=== PATIENT | male | born 1940 | race Caucasian/White ===

== ENCOUNTER 2016-06-05 06:39 | Day surgery (SDC) | payer OTHER ==
--- NOTE | 2016-05-25 11:29 | GHP ---
[f rep st] HISTORY AND PHYSICAL Amended report This is for upcoming surgery, date of admission of June 05, 2016. HISTORY OF PRESENT ILLNESS: The patient comes to our office for the first time , referred by Dr. Valdivia for evaluation of a tender left breast swelling for a few months. He has never had a problem with his chest or breast region. He has had no radiography. He has had no nipple changes. He has not noticed any other masses. He is on terazosin. MEDICATIONS: Terazosin, warfarin, lisinopril, furosemide, carvedilol. PAST MEDICAL HISTORY: Atrial fibrillation, automatic implantable cardioverter defibrillator, BPH, congestive heart failure, hypertension. PAST SURGICAL HISTORY: Ankle reconstruction. Hernia repair. Tonsillectomy/ adenoidectomy. ALLERGIES: No known drug allergies. SOCIAL HISTORY: Two children, , never tobacco use. REVIEW OF SYSTEMS: He had a negative 10-point review of systems. PHYSICAL EXAM: GENERAL: Patient is a pleasant male, in no apparent distress. HEAD AND NECK: Normocephalic, atraumatic. No masses. HEART: Regular rhythm and rate. CHEST: CTA bilaterally. A 2.5 x 3.5 cm, soft, moveable, nontender mass, just superior and slightly left lateral to the nipple region. No axillary masses. ABDOMEN: Soft, nontender. EXTREMITIES: No lower extremity edema. Normal dorsalis pedis pulse to palpation. IMPRESSION: Left breast mass, likely gynecomastia, possibly secondary to terazosin. RECOMMENDATION: Left chest wall mass excision was reviewed with the patient in detail, including the risks of bleeding, recurrence, nerve injury, nipple deformity. The patient elects to proceed with scheduling surgery for May. Please note he does have a Medtronic pacemaker as well as the fact he will need to receive Coumadin instructions from his primary care provider. This is explained to our patient by our scheduling person in our office. /[id number]/MODL Add acc#, 05/30/16, rajesh MIGUEL
[~2016-06-05 06:39] MED LIST: ceFAZolin 2 GM/DEXTROSE 100 ML IV ONE
[2016-06-05] MEDS ORDERED: THROMBIN (RECOMBINANT) 5,000 UNIT VIAL TP ONE (07:31)
[2016-06-05] MEDS ORDERED: SODIUM BICARBONATE 10 MEQ/10 ML SYR IVP ONE (07:31)
[2016-06-05] MEDS ORDERED: LIDOCAINE 1% 30 ML SDV ONE (07:31)
[2016-06-05] MEDS ORDERED: BUPIVACAINE 0.5% 30 ML SDV ONE (07:31)
[2016-06-05] MEDS ORDERED: METHYLENE BLUE 1% 100 MG/10 ML VIAL ONE (07:32)
[2016-06-05 07:45] LABS: ANION GAP 12 mEq/L (8-16); CALCIUM 9.5 mg/dL (8.5-10.4); CARBON DIOXIDE 24 mEq/l (22-31); CHLORIDE 107 mEq/L (97-110); CREATININE 1.5 mg/dL (0.7-1.3); GLOMERULAR FILTRATION RATE 46; GLUCOSE 97 mg/dL (70-100); POTASSIUM 4.6 mEq/L (3.5-5.2); SODIUM 143 mEq/L (134-144)
[2016-06-05 07:48] LABS: INR 1.81 (0.83-1.16); PROTIME(PATIENT) 21.1 SEC (12.0-15.0)
[2016-06-05] MEDS ORDERED: LR 1,000 ML IV ONE (07:52)
[2016-06-05] MEDS ORDERED: LIDOCAINE 1% 5 ML SDV ID PRN (07:52)
[2016-06-05] MEDS ORDERED: fentaNYL 100 MCG/2 ML INJ ONE ×2 (09:04→09:33)
[2016-06-05] MEDS ORDERED: PROPOFOL/EMULSION 500 MG/50 ML BOTTLE IV ONE (09:04)
[2016-06-05] MEDS ORDERED: MIDAZOLAM 2 MG/2 ML VIAL ONE (09:05)
[2016-06-05] MEDS ORDERED: LIDOCAINE 2% 5 ML SDV ONE (09:05)
[2016-06-05] MEDS ORDERED: DEXAMETHASONE 4 MG/ML VIAL ONE (09:36)
[2016-06-05] MEDS ORDERED: SKIN ADHESIVE (DERMABOND) 1 EACH TP ONE (09:41)
--- NOTE | 2016-06-24 20:20 | GOP ---
[f rep st] OPERATIVE REPORT DATE OF OPERATION: 06/05/2016 SURGEON: Clayton Diez MD DOUGHNUT ICER: ESTEBAN Draper ANESTHESIOLOGIST: Dr. Cox PREOPERATIVE DIAGNOSIS: Left breast mass. POSTOPERATIVE DIAGNOSIS: Probable gynecomastia. PROCEDURE PERFORMED: A left subcutaneous mastectomy. FINDINGS: The patient was found to have a 3 cm mass in the subareolar area of the left breast consi stent with gynecomastia on initial evaluation, final path is pending. DESCRIPTION OF PROCEDURE: Patient taken to the operating room, where he received satisfactory gener al endotracheal anesthesia by Dr. Cox. He was placed in the supine position, and prepped an d draped in the usual sterile fashion with his left arm outstretched on an arm board. A curvilinear incision was made around the areola. Dissection was carried down to the palpable mass . This was grasped with a towel clip. It was then sharply excised from surrounding skin of the are desi, as well as the subcu and pectoral fascia, excising the entire mass intact. Hemostasis was obta ined with electrocautery. The wound was infiltrated with 0.5% Marcaine. Some topical thrombin was placed in the cavity. Subc u was closed with interrupted 3-0 Vicryl sutures, the skin with a 4-0 Monocryl subcuticular stitch. The specimen was sent to Pathology and thought to be benign. He tolerated the procedure well. The re were no complications. /[id number]/MODL
== END 2016-06-05 12:55 | disposition home or self-care (01) ==
LOC: FSGY 06:39
PROVIDERS: ATTEND Surgery
PROC: 0HBU0ZX Excision of Left Breast, Open Approach, Diagnostic (ICD-10-PCS; principal; 2016-06-05 08:30)
DX: N62 Hypertrophy of breast (principal); I10 Essential (primary) hypertension; I48.91 Unspecified atrial fibrillation; N28.9 Disorder of kidney and ureter, unspecified
CPT/HCPCS: J0690; J1100; J2250; J2704; J3010; Q9968

== ENCOUNTER 2017-04-05 09:38 | Emergency (ER) | payer OTHER ==
[2017-04-05 09:48] VITALS: RESP 16; TEMP 97.9; O2SAT 97
--- NOTE | 2017-04-05 10:44 | EDPHY ---
H & P Time Seen by Provider: 04/05/17 10:09 HPI/ROS: HPI Right shoulder injury. 76-year-old male by private vehicle. This patient lives up left [facility]. He reports that 1 week ago he slipped on some ice landing on his right side and shoulder. He complains of continued pain to the medial aspect of the right clavicle. He denies any other complaint. He is on Coumadin. He did not hit his head. There was no loss of consciousness. He denies any headache, confusion, nausea or vomiting. No other complaints. ROS: Constitutional: No fever, no chills. No weakness. Eyes: No discharge. No changes in vision. ENT: No sore throat. No nasal congestion or rhinorrhea. Respiratory: No cough. No shortness of breath. Cardiac: No chest pain, no palpitations. Gastrointestinal: No abdominal pain, no vomiting, no diarrhea. Genitourinary: No hematuria. No dysuria or increased frequency with urination. Musculoskeletal: No back pain. No neck pain. As above. Skin: No rashes. Neurological: No headache. No focal weakness or altered sensation. Past medical history: Pacemaker, hypertension, arrhythmia. He is on Coumadin. Cnc Mill Operator is Dr. Rodriguez. Social history: Lives with his . Very active. Nonsmoker. Denies alcohol. Physical Exam: General Appearance: Alert, no distress. This patient is responding to questions appropriately and in full sentences. This patient appears well- hydrated and well-nourished. Head: Normocephalic atraumatic. Face: Facial bones are stable on palpation. Eyes: Pupils equal and round and reactive to light, no pallor or injection. No lid erythema or edema. ENT, Mouth: Mucous membranes moist. Dentition is intact. No malocclusion of the jaw. No tongue lacerations or abrasions. Pharynx is clear. The bilateral nasal canals are clear. No septal hematoma. Respiratory: There are no retractions, lungs are clear to auscultation with good air movement bilaterally. Chest wall is stable to AP and lateral palpation. Cardiovascular: Regular rate and rhythm. No murmur. Gastrointestinal: Abdomen is soft and nontender, no masses, bowel sounds normal. Neurological: Motor sensory function is intact. Cranial nerves are normal. Cerebellar function intact. Skin: Warm and dry, no rashes. No lacerations, abrasions. He does have ecchymosis involving his right mid forearm as well as ecchymosis and a swelling over the medial aspect of the right clavicle. The skin is intact in this area. The ecchymosis then spreads down into his right chest wall. He is nontender over the chest wall on palpation. Musculoskeletal: Neck is supple and nontender. The trachea is midline. No midline cervical, thoracic, lumbar or sacral tenderness on palpation. No flank tenderness on palpation. Extremities are symmetrical, full range of motion. All joints in the bilateral upper and bilateral lower extremities range without pain or impingement. No tenderness on palpation of the long bones in the bilateral upper and bilateral lower extremities. Psychiatric: No agitation. No depression. Database: EKG: Imaging: Right shoulder x-ray series: Significant for a medial clavicle fracture with minimal displacement. Interpreted by me. Procedures: Emergency department course: Vital signs reviewed. From triage, the patient was sent for x-rays as above. 10:40 a.m., discussed results of x-rays and diagnosis with the patient. At this time he does not want to follow up with a lactation specialist. He wants to let the clavicle heal on its own for the time being. I told him I would give him a referral to an lactation specialist should he change his mind. He has not been using a sling. He does have a sling at home. He states that he is comfortable for most of the day. He reports certain movements aggravates his pain such as putting the keys to his car in the admission. He has been taking some Percocet conservatively for pain. I will give him another prescription for Percocet. He does not have issues with constipation with this medication. I discussed follow-up with him. Return to emergency department precautions thoroughly reviewed. All of his questions were answered. He was discharged in good condition. Differential Diagnosis: The differential diagnosis on this patient includes but is not limited to right clavicle fracture. Right humerus fracture, glenohumeral dislocation, subluxation, AC joint dislocation, traumatic brain injury unlikely. This represents a partial list of diagnoses considered. These considerations are based on history, physical exam, past history, reassessment and diagnostic testing. Smoking Status: Never smoked Constitutional: Initial Vital Signs Temperature (C) 36.6 C 04/05/17 09:43 Heart Rate 75 04/05/17 09:43 Respiratory Rate 16 04/05/17 09:43 Blood Pressure 125/81 H 04/05/17 09:43 O2 Sat (%) 97 04/05/17 09:43 O2 Delivery Mode Room Air Allergies/Adverse Reactions: No Known Allergies Allergy (Unverified 07/28/12 13:30) Home Medications: Medication Instructions Recorded Carvedilol [Coreg (RX)] 12.5 mg PO BIDMEAL 11/19/12 Lisinopril [Zestril 20 mg (RX)] 20 mg PO DAILY 11/19/12 Multivitamins [Tab-A-German] 1 each PO DAILY 11/19/12 [place]-3 Fatty Acids [Fish Oil 1000 1,000 mg PO DAILY 11/19/12 mg (OTC)] Terazosin HCl [Hytrin] 5 mg PO HS 11/19/12 Furosemide [Lasix 20 MG (RX)] 10 mg PO DAILY 04/25/13 Warfarin Sodium 06/02/16 oxyCODONE/APAP 5/325 [Percocet 1 - 2 tab PO Q4-6PRN PRN #14 tab 04/05/17 5/325 (*)] Medical Decision Making - Diagnostics Imaging Results: Imaging Impressions Shoulder X-Ray 04/05/17 09:54 Impression: Acute minimally displaced medial right clavicle fracture. Departure - Departure Disposition: Home, Routine, Self-Care Clinical Impression: Right clavicle fracture Condition: Good Instructions: Clavicle Fracture (ED) Additional Instructions: Read and follow provided instructions. Follow-up with your primary care physician or orthopedics as discussed in 2-3 days for re-evaluation as needed. Take medication as prescribed. Export/Percocet dosin-2 every 4-6 [address] for [address] Do not drive on this medication. Return to the emergency department for worsening pain, swelling, loss of sensation or weakness in your arm or other serious concerns. Referrals: Doyle Valdivia MD [Primary Care Provider] - As per Instructions Michael Patel MD [Medical Doctor] - As per Instructions Prescriptions: oxyCODONE/APAP 5/325 [Percocet 5/325 (*)] 1 - 2 tab PO Q4-6PRN PRN #14 tab PRN Reason: For Moderate To Severe Pain
[2017-04-05 11:09] VITALS: BP 126/65; PULSE 68
== END 2017-04-05 11:10 | disposition home or self-care (01) ==
DX: S42.001A Fracture of unspecified part of right clavicle, initial encounter for closed fracture (principal); I10 Essential (primary) hypertension; Z95.0 Presence of cardiac pacemaker; Z79.01 Long term (current) use of anticoagulants; W00.2XXA Other fall from one level to another due to ice and snow, initial encounter

== ENCOUNTER 2017-04-25 17:36 | Inpatient (IN) | payer OTHER ==
--- NOTE | 2017-04-25 17:55 | CPEKG ---
Heart Rate: 111 RR Interval: 541 QRSD Interval: 186 QT Interval: 440 QTC Interval: 598 QRS [place]: 109 T Wave [place]: -78 EKG Severity - ABNORMAL ECG - EKG Impression: AFIB/FLUT AND V-PACED COMPLEXES EKG Impression: RIGHT BUNDLE BRANCH BLOCK EKG Impression: NONSPECIFIC ST DEPRESSION, ANT-LAT LEADS Electronically Signed By: Rajinder Huffman 25-Apr-2017 21:44:06
[2017-04-25] MEDS ORDERED: NS 1,000 ML IV ONE (17:58)
--- NOTE | 2017-04-25 17:58 | EDPHY ---
H & P Stated Complaint: Heart beating differently at times x 2 days;has pacer/defib HPI/ROS: HPI CHIEF COMPLAINT: Tachycardia, palpitations HISTORY OF PRESENT ILLNESS: This patient is a very pleasant 76-year-old male, significant past medical history atrial fibrillation on Coumadin, left chest pacemaker/defibrillator, presents to the emergency room with palpitations, and brief episodes of syncope. Patient reports over the past 48 hr he has had intermittent fast palpitations that at times makes heels flushed, and then also endorses 30 sec to a minute of syncope. This happened 4 times. Twice today. He denies any chest pain or shortness of breath. Denies nausea vomiting. Denies sweating. But does endorse flushed feeling. He states that his heart rate is always usually in AFib but recently it is felt very fast and very irregular causing him to be feeling flushed and at times states that he thinks he has a syncopal episode. Dr. 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 Past Medical History: Hypertension, atrial fibrillation, BPH, CHF, defibrillator/pacemaker Past Surgical History: Left breast mass excision Social History: Denies daily use of drugs alcohol tobacco products. Family History: Noncontributory ROS REVIEW OF SYSTEMS: A comprehensive 10 point review of systems is otherwise negative aside from elements mentioned in the history of present illness. Exam Constitutional appears well nontoxic triage nursing summary reviewed, vital signs reviewed, awake/alert. Eyes normal conjunctivae and sclera, EOMI, PERRLA. HENT normal inspection, atraumatic, moist mucus membranes, no epistaxis, neck supple/ no meningismus, no raccoon eyes. Respiratory clear to auscultation bilaterally, normal breath sounds, no respiratory distress, no wheezing. Cardiovascular tachycardic, irregular, irregular rhythm, no murmur, no edema, distal pulses normal. Gastrointestinal soft, non-tender, no rebound, no guarding, normal bowel sounds, no distension, no pulsatile mass. Genitourinary no CVA tenderness. Musculoskeletal no midline vertebral tenderness, full range of motion, no calf swelling, no tenderness of extremities, no meningismus, good pulses, neurovascularly intact. Skin pink, warm, & dry, no rash, skin atraumatic. Neurologic awake, alert and oriented x 3, AAOx3, moves all 4 extremities equally, motor intact, sensory intact, CN II-XII intact, normal cerebellar, normal vision, normal speech. Psychiatric normal mood/affect. Heme/Lymph/Immune no lymphadenopathy. Differential Diagnosis: Includes but is not limited to in a particular order AFib with RVR, other cardiac arrhythmia, doubt V-tach or VFib given that this is diffuse later has not went off, bradycardia, electrolyte disturbance, dehydration, acute coronary syndrome Medical Decision Making: Plan for this patient IV establishment blood draw, full quality assurance monitor body, obtain EKG, chest x-ray. Will have his Medtronic pacemaker interrogated. Re-evaluation: EKG interpretation by me on record in [employer] system. Impression time of EKG 1753, this is atrial fibrillation rate of 111 PVC present. Very irregular and fast. There does appear to be slight ST depression in V1 V2 V3 with T-wave abnormality. Also ST depression V4 V5 V6. This EKG is performed no chest pain or pressure. 1820: Spoke with Dr. MÁRQUEZ about this patient's clinical scenario food as well as EKG. I will test him the EKG for him to review. He does recommend [employer] interrogation of his pacemaker. Additionally will review the EKG. 182: This patient just now had a run of V-tach for approximately 5 sec. This was witnessed on the monitor by myself. The patient did not have a shock of his defibrillator. Will consult Cardiology for further recommendation up this. The patient is being moved ER room 9 to ER room 2. 182: Patient just had a run of ventricular tachycardia he became symptomatic and almost had a syncopal episode lying down in bed. He denies chest pain. It ran for about 5 sec. He has been moved to ER room 2. External defibrillator pads will be placed. He is internal defibrillator is not shocking him. I will notify Cardiology. 1830: Spoke with Dr. MÁRQUEZ: Recommend amiodarone bolus amiodarone drip admission to the ICU. Recommends interrogation of the defibrillator by [employer]. He would like to specifically speak with [employer] 183: At this time patient resting comfortably he has no chest pain. He is in ER room tube full quality assurance monitor body. External defibrillator pads. EKG interpretation by me on record in [employer] system. Impression this is a repeat EKG 18 30, atrial fibrillation with PVCs present. Abnormal ST depression T-wave abnormalities again seen. Rhythm strip reviewed. Time of rhythm strip 1821. Shows a run of V-tach proximally 5 sec. Rate around 200. 1911: Spoke with Dr. Márquez, again Recommends giving the amiodarone more time. Hold for lidocaine. He does recommend giving IV Lasix. ED x-ray chest one view: This shows cardiomegaly without pulmonary edema. 1920: Patient receiving ER room bolus at this time. The ventricular tachycardia has not been as frequent. I have ordered this patient IV Lasix due to significant cardiomegaly on x-ray. I do not appreciate significant pulmonary edema however the patient's BNP is elevated. Dr. MÁRQUEZ recommends 40 mg IV Lasix. 1955: This patient be admitted to the ICU for V-tach. [employer] is seen and evaluated the patient. Dr. Taylor was consult and talk to [employer] they did make some defibrillator adjustments. Dr. Taylor will see the patient. The patient did get amiodarone and he is doing well. Has not had any further V-tach about 20-30 minutes. Plan for a finley to the ICU for ventricular tachycardia. Additionally cardiomegaly noted on chest x-ray of ordered him IV Lasix he will need an echocardiogram. Dr. Sal will see will see and evaluate the patient admit the patient to the hospital. Critical Care: Total Critical Care Time Spent Managing this Patient: 65Minutes. This time was spent Exclusively with this patient. This Care was exclusive of procedures. The Organ System/life at risk was cardiac This Patient was in Critical Condition because intermittent V-tach Source: Patient - Personal History Current Tetanus Diphtheria and Acellular Pertussis (TDAP): Yes Tetanus Vaccine Date: UNKNOWN - Medical/Surgical History Hx Asthma: No Hx Chronic Respiratory Disease: No Hx Diabetes: No Hx Cardiac Disease: Yes Hx Renal Disease: No Hx Cirrhosis: No Hx Alcoholism: No Hx HIV/AIDS: No Hx Splenectomy or Spleen Trauma: No Other PMH: Pacer. Afib - Social History Smoking Status: Never smoked Constitutional: Initial Vital Signs Temperature (C) 36.4 C 04/25/17 17:40 Heart Rate 55 L 04/25/17 17:40 Respiratory Rate 16 04/25/17 17:40 Blood Pressure 122/86 H 04/25/17 17:40 O2 Sat (%) 95 04/25/17 17:40 O2 Delivery Mode Nasal Cannula O2 (L/minute) 2 Allergies/Adverse Reactions: No Known Allergies Allergy (Verified 04/25/17 17:43) Home Medications: Medication Instructions Recorded Carvedilol [Coreg (RX)] 12.5 mg PO BIDMEAL 11/19/12 Lisinopril [Zestril 20 mg (RX)] 20 mg PO DAILY 11/19/12 Terazosin HCl [Hytrin] 5 mg PO HS 11/19/12 Warfarin Sodium [Coumadin 5MG (*)] 5 mg PO [id number] 06/02/16 Furosemide [Lasix 40 MG (*)] 40 mg PO DAILY 04/25/17 Multivitamins [Multivitamin (*)] 1 each PO DAILY 04/25/17 Warfarin Sodium [Coumadin 5MG (*)] 2.5 mg PO GASPAR 04/25/17 Medical Decision Making - Data Points Laboratory Results: Laboratory Results 04/25/17 17:55 04/25/17 17:55 Medications Given: Amiodarone HCl (Amiodarone Hcl) 400 mg PO BID [facility] Stop: 10/23/17 20:59 Last Admin: 04/26/17 20:30 Dose: 400 mg Carvedilol (Coreg) 12.5 mg PO BIDMEAL [facility] Stop: 10/23/17 07:59 Last Admin: 04/26/17 18:14 Dose: 12.5 mg Diphenhydramine HCl (Benadryl) 25 mg PO HS [facility] Stop: 10/22/17 21:29 Last Admin: 04/26/17 20:30 Dose: 25 mg Furosemide (Lasix Injection) 40 mg IVP DAILY [facility] Stop: 10/23/17 08:59 Last Admin: 04/26/17 11:12 Dose: 40 mg Lisinopril (Zestril) 20 mg PO DAILY [facility] Stop: 10/23/17 08:59 Last Admin: 04/26/17 11:11 Dose: 20 mg Melatonin (Melatonin) 3 mg PO [facility] Stop: 10/22/17 21:29 Last Admin: 04/26/17 20:30 Dose: 3 mg Multivitamins (Tab-A-German) 1 each PO DAILY [facility] Stop: 10/23/17 08:59 Last Admin: 04/26/17 11:11 Dose: 1 each Oxycodone/Acetaminophen (Percocet 5/325) 1 - 2 tab PO Q4 PRN PRN Reason: Pain, Severe Able to Take PO Stop: 05/06/17 11:02 Last Admin: 04/26/17 20:30 Dose: 1 tab Terazosin HCl (Hytrin) 5 mg PO HS [facility] Stop: 10/22/17 20:59 Last Admin: 04/26/17 18:09 Dose: 5 mg Warfarin Sodium (Coumadin) 2.5 mg PO Gaspar@1600 [facility] Stop: 10/22/17 19:59 Last Admin: 04/25/17 21:01 Dose: Not Given Warfarin Sodium (Coumadin) 5 mg PO MoTuWeThFrSa@1600 [facility] Stop: 10/23/17 15:59 Last Admin: 04/26/17 16:50 Dose: 5 mg Discontinued Medications Furosemide (Lasix Injection) 40 mg IVP EDNOW ONE Stop: 04/25/17 19:15 Last Admin: 04/25/17 19:29 Dose: 40 mg Sodium Chloride (Ns) 1,000 mls @ 0 mls/hr IV EDNOW ONE; Wide Open PRN Reason: Protocol Stop: 04/25/17 17:59 Last Admin: 04/25/17 18:08 Dose: 1,000 mls Amiodarone HCl (Amiodarone Hcl) 100 mls @ 600 mls/hr IV ONCE ONE Stop: 04/25/17 18:36 Last Admin: 04/25/17 18:39 Dose: 100 mls Amiodarone HCl (Amiodarone Hcl) 200 mls @ 0 mls/hr IV EDNOW ONE PRN Reason: As Directed Stop: 04/25/17 18:29 Last Admin: 04/25/17 18:46 Dose: 200 mls Amiodarone HCl 540 mg/ (Dextrose) 300 mls @ 16.667 mls/hr IV ONCE ONE PRN Reason: Protocol Stop: 04/26/17 18:29 Last Admin: 04/26/17 00:25 Dose: 300 mls Departure - Departure Disposition: [facility] Clinical Impression: Ventricular tachycardia CHF (congestive heart failure) Qualifiers: Congestive heart failure type: unspecified congestive heart failure type Congestive heart failure chronicity: acute Qualified Code(s): I50.9 - Heart failure, unspecified Atrial fibrillation Qualifiers: Atrial fibrillation type: unspecified Qualified Code(s): I48.91 - Unspecified atrial fibrillation Condition: Fair
[2017-04-25 18:20] LABS: % IMMATURE GRANULYOCYTES 0.2 % (0.0-1.1); ABSOLUTE IMMATURE GRANULOCYTES 0.01 10^3/uL (0.00-0.10); ADD DIFF? NO; ADD MORPH? NO; ADD SCAN? NO; ATYPICAL LYMPHOCYTE FLAG 0 (0-99); FRAGMENT RBC FLAG 0 (0-99); HEMATOCRIT 33.7 % (40.0-51.0); HEMOGLOBIN 11.8 g/dL (13.7-17.5); LEFT SHIFT FLG 0 (0-99); LIPEMIA HEMOLYSIS FLAG 90 (0-99); MEAN CELL HEMOGLOBIN 35.3 pg (27.9-34.1); MEAN CELL VOLUME 100.9 fL (81.5-99.8); MEAN PLATELET VOLUME 10.3 fL (8.7-11.7); PLATELET CLUMPS FLAG 10 (0-99); PLATELET COUNT 129 10^3/uL (150-400); RED BLOOD CELL COUNT 3.34 10^6/uL (4.40-6.38); RED CELL DISTRIBUTION WIDTH 13.2 % (11.5-15.2)
[2017-04-25] MEDS ORDERED: AMIODARONE HCL 100 ML IV ONE (18:27)
[2017-04-25 18:28] LABS: INR 2.54 (0.83-1.16); PROTIME(PATIENT) 27.3 SEC (12.0-15.0)
[2017-04-25] MEDS ORDERED: AMIODARONE HCL 200 ML IV ONE (18:28)
[2017-04-25 18:29] LABS: APTT 36.3 SEC (23.0-38.0)
--- NOTE | 2017-04-25 18:31 | CPEKG ---
Heart Rate: 99 RR Interval: 606 QRSD Interval: 164 QT Interval: 440 QTC Interval: 565 QRS [place]: -85 T Wave [place]: 92 EKG Severity - ABNORMAL ECG - EKG Impression: AFIB/FLUT AND V-PACED COMPLEXES Electronically Signed By: Rajinder Huffman 25-Apr-2017 21:44:06
[2017-04-25 18:36] LABS: ALANINE AMINOTRANSFERASE 61 IU/L (21-72); ALBUMIN 4.3 g/dL (3.5-5.0); ALKALINE PHOSPHATASE 38 IU/L (38-126); ANION GAP 15 mEq/L (8-16); ASPARTATE AMINOTRANSFERASE 48 IU/L (17-59); BILIRUBIN,TOTAL 0.9 mg/dL (0.1-1.4); BILIRUBIN-CONJUGATED 0.4 mg/dL (0.0-0.5); BILIRUBIN-UNCONJUGATED 0.5 mg/dL (0.0-1.1); CALCIUM 9.7 mg/dL (8.5-10.4); CARBON DIOXIDE 20 mEq/l (22-31); CHLORIDE 109 mEq/L (97-110); CREATININE 1.5 mg/dL (0.7-1.3); GLOMERULAR FILTRATION RATE 46; GLUCOSE 100 mg/dL (70-100); POTASSIUM 4.6 mEq/L (3.5-5.2); SODIUM 144 mEq/L (134-144); TOTAL PROTEIN 7.2 g/dL (6.3-8.2)
[2017-04-25 18:48] LABS: CREATINE KINASE-MB FRACTION 2.13 ng/mL (0.00-3.19); TROPONIN I 0.025 ng/mL (0.000-0.034)
[2017-04-25] MEDS ORDERED: FUROSEMIDE 40 MG/4 ML VIAL IVP ONE (19:14)
[2017-04-25] MEDS ORDERED: ONDANSETRON DISINTEGRATING 4 MG TAB PO PRN (19:50)
[2017-04-25] MEDS ORDERED: ONDANSETRON 4 MG/2 ML VIAL IVP PRN (19:50)
[2017-04-25] MEDS ORDERED: ACETAMINOPHEN 325 MG TAB PO PRN (19:50)
[2017-04-25] MEDS ORDERED: WARFARIN SODIUM 5 MG TAB PO SCH (20:00)
[2017-04-25] MEDS: TERAZOSIN HCL 5 MG CAP PO SCH (21:01)
[2017-04-25] MEDS ORDERED: diphenhydrAMINE 25 MG CAP PO PRN (21:03)
--- NOTE | 2017-04-25 21:31 | GHP ---
[f rep st] HISTORY AND PHYSICAL DATE OF ADMISSION: 04/25/2017 CHIEF COMPLAINT: Syncope. HISTORY OF PRESENT ILLNESS: This is a 76-year-old male with a history of atrial fibrillation and sys tolic heart failure, on chronic anticoagulation, who presents with 4 episodes of loss of consciousnes s/loss of attention over the course of the past 48-72 hours. Patient reports a sensation of flutteri ng of his heart and palpitations, and then 3 separate episodes where he believes he either lost consc iousness or simply lost alertness for 30 seconds or a minute. Patient never had a fall associated wi th these episodes. No loss of bowel or bladder control. Came to, was aware of where he was, but radha ble to recall what had happened just previous to the episodes. He denies any chest pain associated w ith them, denies any new shortness of breath. Denies any abdominal discomfort, nausea, vomiting. De nies any increasing lower extremity edema, myalgias or arthralgias. PAST MEDICAL HISTORY: 1. Atrial fibrillation, on chronic anticoagulation, with implantable defibrillator. 2. Systolic heart failure with an ejection fraction at 25% when last checked. 3. Hypertension. 4. Recent fall with clavicular fracture. 5. BPH. 6. Chronic kidney disease. SOCIAL HISTORY: Negative for tobacco. Patient drinks a beer in the evenings. Denies any illicit dr ugs or marijuana. FAMILY HISTORY: Significant for heart disease. REVIEW OF SYSTEMS: A 10-point review of systems is negative with the exception of that reported in t he HPI. ADVANCED DIRECTIVES: Patient is full cor, full tube. His would be his medical decision maker. PHYSICAL EXAMINATION: VITAL SIGNS: Blood pressure 116/62, heart rate 84, respiratory rate 16, 97% o n 2 L. GENERAL: This is a thin-appearing elderly male in no acute distress. HEENT: Notable for dr y mucous membranes. Eye exam is negative for any icterus. CARDIAC: Patient is regular with a systo lic murmur. GASTROINTESTINAL: Positive bowel sounds. ABDOMEN: Soft and nontender. PULMONARY: Tigre alexandre has bibasilar crackles. MUSCULOSKELETAL: Trace bilateral symmetric lower extremity edema. SK IN: Notable for venous stasis changes in the lower extremities. NEUROLOGIC: He is alert and orient ed x3. PSYCHIATRIC: He is pleasant and cooperative on interview and examination. DATA: Chest x-ray, which I personally reviewed and interpreted, shows pronounced cardiomegaly withou t clear heart failure. There is a mildly displaced right-sided clavicular fracture and an implantabl e cardiac device. EKG at presentation shows ventricular tachycardia with interspersed paced beats. LABORATORY: White count 5.05, hematocrit 33.7, down from previous baselines. MCV is greater than 10 0, platelet count 129. Sodium 144, creatinine 1.5, which appears to be a recent baseline. BNP 12,10 0. ASSESSMENT AND PLAN: This is a 76-year-old male, presenting with ventricular tachycardia and syncope . 1. Acute ventricular tachycardia. Patient had multiple episodes of ventricular tachycardia in the e mergency department while on monitor without syncope, as the episodes were not sustained. The patien t's defibrillator did not appear to be functioning properly. [employer] did come evaluate the device. It was functioning properly, but the settings were such that the device was not intervening on the episodes seen. Patient has been initiated on IV amiodarone, and the pacemaker/defibrillator has been adjusted. Patient will be admitted to the ICU for close cardiac monitoring and ongoing IV amiodaron e drip overnight. Cardiology has been consulted and will evaluate the patient for recommendations re lated to his ventricular dysrhythmia. 2. Chronic systolic heart failure. Last echo in our system shows an ejection fraction of 25%. Patt ent's BNP is markedly elevated. I have ordered a transthoracic echocardiogram for the morning. Will continue his outpatient home medications, which include oral diuretics. Does not appear to be in ac lumbee decompensated heart failure, based on my examination. 3. Atrial fibrillation. Will continue his home anticoagulation. EP will consult and make ongoing r ecommendations related to the new ventricular dysrhythmia. 4. Benign prostatic hyperplasia. Will continue patient's terazosin in the evenings. 5. Prophylaxis. The patient is on full-dose anticoagulation. 6. Diet: Cardiac, n.p.o. after midnight in case the cardiologists want to intervene. DISPOSITION: I expect greater than 2 midnights, as the patient presented with life-threatening ventr icular dysrhythmia, requiring medication titration and close monitoring. I have discussed the case w ith the emergency room physician. Patient will be triaged to the ICU for care. /[id number]/MODL
[2017-04-25] MEDS: diphenhydrAMINE 25 MG CAP PO SCH (21:48)
[2017-04-25] MEDS: MELATONIN 3 MG TAB PO SCH (21:48)
--- NOTE | 2017-04-25 22:57 | GCON ---
[f rep st] CONSULTATION REASON FOR CONSULTATION: Syncope. HISTORY OF PRESENT ILLNESS: This is a 76-year-old patient with past medical history of permanent atrial fibrillation, nonischemic cardiomyopathy, EF of 25- 30%, on chronic anticoagulation, status post Biventricular ICD implanted 4 years back, who had been in normal health, when about 4 weeks back, the patient had a fall and had clavicular fracture and accompanying injury. Due to these injuries, he started using Advil. As a result of the use of Advil, his urination decreased. Over the period of time, his shortness of breath worsened , and he started retaining fluid. This has been despite the use of a small dose of Lasix. However, about 3 days back, he started noticing fluttering in the chest and palpitations followed by near-syncope or syncope lasting 20-30 seconds. This happened 2 days prior, and then had another episode within 24 hours, and then today, he had 2 more episodes. With none of these episodes he had any associated fall. He had no loss of bowel or bladder control. He came to every single time and did not feel the ICD shocks. He mentioned that he has had some pedal edema, but denies any nausea, vomiting. No diarrhea. No myalgia or arthralgia, other than the pain related to his recent fall. PAST MEDICAL HISTORY: Cardiomyopathy; congestive heart failure, EF of 25%; biventricular ICD, Medtronic; hypertension; mitral regurgitation. PAST SURGICAL HISTORY: Ankle reconstruction, hernia repair, tonsillectomy, adenoidectomy. SOCIAL HISTORY: No tobacco use. Drinks a beer in the evening. Denies any illicit drug use. FAMILY HISTORY: Positive for heart disease. REVIEW OF SYSTEMS: Other than the above, 10-point review of systems is negative. PHYSICAL EXAM: VITAL SIGNS: Blood pressure of 110/60, pulse of 84, respiratory rate 16. GENERAL: Thin-appearing elderly male in no acute distress. HEENT: Moist mucous membranes. Anicteric sclerae. Pupils equally reacting to light and accommodating. CHEST: Fair air entry. No rales heard. No rhonchi. NECK: No lymphadenopathy. JVD is elevated at 15 cm. CARDIAC: Irregular heartbeat. Systolic ejection murmur present. Apical impulse is displaced. ABDOMEN: Soft, nontender. No guarding or rigidity. Bowel sounds present. EXTREMITIES: Trace pulmonary edema. Venous stasis noted. NEUROLOGIC : Alert, oriented x3. PSYCHIATRIC: Pleasant, cooperative. Asks appropriate questions and interacts appropriately. IMAGING: Chest exam shows cardiomegaly. No lymphadenopathy. Displaced clavicular fracture on the right side. ICD noted. LAB: White count of 5.05, BNP greater than 12,000, MCV greater than 100, creatinine 1.7. EKG shows a paced rhythm with PVCs in bigeminal pattern. Tele monitor shows occasions of nonsustained VT. Device interrogation was performed. VT/VF was noted at around 207 beats per minute; (fell in the VT zone with detection at 24/ 32, ) ATP was successful every time IMPRESSION/PLAN: This is a 76-year-old male who presented with ventricular tachycardia/ventricular fibrillation and presyncope/syncope. Ventricular tachycardia. Patient has had multiple episodes of ventricular tachycardia and had nonsustained ventricular tachycardia in the emergency room. Hence, at this point in time, IV amiodarone has been started. The patient is tolerating it well. [employer] device interrogation was performed, and changes have been made whereby the VT zone from 150-184, VF from 184 onward and the detection interval has been decreased to 12/16 and ATP during charging is present in VF zone. However, after that, the patient will be subjected to maximal shock. In slower VT zone (150 - 184) ATP will be attempted The most likely cause of the patient's ventricular tachycardia (this is his first episode) is likely congestive heart failure, which is evident by increased BNP, increased JVD, and patient's history of difficulty breathing. In view of this, we will start him on IV Lasix 40 mg daily. Atrial fibrillation. He is in permanent atrial fibrillation. He is on Coumadin at home and will continue the same. We will evaluate the echocardiogram to see if there has been a recent drop in the ejection fraction and/or worsening of the mitral regurgitation. Thank you for letting us participate in the patient's care. /[id number]/MODL MTDD
[2017-04-26] MEDS ORDERED: AMIODARONE A.FIB-18HR INFSN (ORDER 3/3) IV ONE (00:30)
[2017-04-26 05:28] LABS: ADD DIFF? NO; ADD MORPH? NO; ADD SCAN? NO; ATYPICAL LYMPHOCYTE FLAG 10 (0-99); FRAGMENT RBC FLAG 0 (0-99); HEMATOCRIT 31.1 % (40.0-51.0); HEMOGLOBIN 10.7 g/dL (13.7-17.5); LEFT SHIFT FLG 0 (0-99); LIPEMIA HEMOLYSIS FLAG 90 (0-99); MEAN CELL HEMOGLOBIN 34.5 pg (27.9-34.1); MEAN CELL HEMOGLOBIN CONCENTR. 34.4 g/dL (32.4-36.7); MEAN CELL VOLUME 100.3 fL (81.5-99.8); MEAN PLATELET VOLUME 9.7 fL (8.7-11.7); PLATELET CLUMPS FLAG 10 (0-99); PLATELET COUNT 94 10^3/uL (150-400); RED CELL DISTRIBUTION WIDTH 13.2 % (11.5-15.2)
[2017-04-26 05:45] LABS: ANION GAP 9 mEq/L (8-16); CALCIUM 9.2 mg/dL (8.5-10.4); CARBON DIOXIDE 24 mEq/l (22-31); CHLORIDE 108 mEq/L (97-110); CREATININE 1.4 mg/dL (0.7-1.3); GLOMERULAR FILTRATION RATE 49; GLUCOSE 85 mg/dL (70-100); SODIUM 141 mEq/L (134-144)
[2017-04-26 05:57] LABS: TROPONIN I 0.038 ng/mL (0.000-0.034)
[2017-04-26 06:51] LABS: FOLATE SERUM > 20.00 ng/mL (2.80 - >20.00)
[2017-04-26] MEDS ORDERED: FUROSEMIDE 40 MG TAB PO SCH (09:00)
--- NOTE | 2017-04-26 09:30 | ASMTCMCOM ---
CM Note CM Note Notes: 76 year old male admitted for syncope, VTACH. He has a hx of Afib, CHF, HTN, CKD, BPH, recent fall with cervical fx. Has an AICD and will be medically managed at this time. No other needs anticipated. Date Signed: 04/26/2017 09:30 AM Electronically Signed By:Trish Wilhelm LCSW
--- NOTE | 2017-04-26 10:37 | PDMN ---
Medical Necessity Medical necessity: Patient meets INPT criteria per physician note and MCG M-575 Ventricular Arrhythmias (four episodes of syncope/pre-syncope lasting 20-30 secs in the past 48-72 hrs; signs of increasing CHF/fluid retention likely cause of increasing VT episodes; hx of permanent atrial fib, systolic heart failure/ nonischemic cardiomyopathy/EF 25-30 %; w/ biventric ICD; started on IV amiodarone; Medtronic for ICD device evaluation/adjustment; anticipated LOS > 2 midnights for close monitoring in ICU post-ICD adjustment.)
[2017-04-26] MEDS: MULTIVITAMINS 1 EACH TAB PO SCH (11:11)
[2017-04-26] MEDS: LISINOPRIL 20 MG TAB PO SCH (11:11)
[2017-04-26] MEDS: CARVEDILOL 6.25 MG TAB PO SCH ×2 (11:12→18:14)
[2017-04-26] MEDS: FUROSEMIDE 40 MG/4 ML VIAL IVP SCH (11:12)
[2017-04-26] MEDS: OXYCODONE/APAP 5/325 TAB PO PRN ×2 (11:19→20:30)
--- NOTE | 2017-04-26 11:31 | ECHO ---
[email or web address] [address] [address] Main: [phone] Fax: Transthoracic Echocardiogram Name: SHIV VELASQUEZ MR#: [id number] Study Date: 04/26/2017 Study Time: 08:20 AM Date of : 1940 Age: 76 year(s) Height: 185.4 cm (73 in.) Weight: 70.31 kg (155 lb.) BSA: 1.93 m2 Gender: Male Examination: Echo Indication: vtach Image Quality: Adequate Contrast: Requested by: Rajani Sal BP: 123 mmHg/73 mmHg Heart Rate: Rhythm: Indication: vtach Procedure Staff [employer]: Stefani Tinajero Physician: Stepan Navarro Requesting Provider: Conclusions: No pericardial effusion. Global 4 chamber enlargement. Severe biventricular systolic dysfunction. Ejection fraction 15-20%. Moderate to severe mitral regurgitation. Moderate aortic regurgitation. Isqi-ly-hsftnacq tricuspid regurgitation with right ventricular systolic pressure of 47 mm of mercury. ICD wire in the right heart. Measurements: Chambers Valvular Assessment AV/MV Valvular Assessment TV/PV Normal Normal Normal Name Value Range Name Value Range Name Value Range Ao Funmilayo (MM): 3.9 cm (2.2 cm-3.7 AV Vmax: 1.13 m/s (1 m/s-1.7 TR Vmax: 2.81 mm/s ( - ) cm) m/s) TR PGmax: 32 mmHg ( - ) IVSd (2D): 1.2 cm (0.6 cm-1.1 AV maxP mmHg ( - ) syst. PAP: 47 mmHg ( - ) cm) LVOT Vmax: 0.80 m/s (0.7 m/s-1.1 PV Vmax: 0.80 m/s (0.6 m/s-0.9 LVDd (2D): 6.9 cm (4.2 cm-5.9 m/s) m/s) cm) DIANE (Vmax): 2.9 cm2 ( - ) PV PGmax: 3 mmHg ( - ) LVDs (2D): 6.6 cm (2.1 cm-4 AR (PHT): 618 ms ( - ) cm) MV E Vmax: 0.75 m/s ( - ) LVPWd (2D): 1.2 cm (0.6 cm-1 MV meanP mmHg ( - ) cm) MVA (Vmax): 5.1 m/s ( - ) LVOTd 2.3 cm 2.3 cm mm LVEF (BP): 19 % (>=55 %) EF Range: 15-20 % RVDd(2D): 474.7 cm (1.9 cm-3.8 cmmm) Continued Measurements: Chambers Valvular Assessment AV/MV Valvular Assessment TV/PV Name Value Name Value Name Value LADs Lon.3 cm MV Annulus: 4.0 cm CVP (est.): 15 mmHg Patient: SHIV VELASQUEZ Study Date: 04/26/2017 Page 1 of 2 08:20 AM LA Area: 35.0 cm2 MV DecTime: 268 m/s LA Volume: 119 ml MV VTI: 10.70 cm LA Volume Index: 61.7 ml/m2 MR ERO: 0.440 cm2 TAPSE: 1.3 cm MR PISA radius: 9 mm RA Area: 34.0 cm2 MR Reg. Volume: 65 ml MR Reg. Fraction: 48 % AR Vmax: 3.31 cm/s Additional Vessels Name Value Ao Ascendin.8 cm Findings: Left Ventricle: Moderately to severely dilated left ventricle. Mild concentric LV hypertrophy. Severely reduced systolic LV function. The ejection fraction is estimated to be 15-20 %. Unable to assess diastolic dysfunction. Right Ventricle: Moderately dilated right ventricle. Mildly reduced RV function. There is an ICD lead noted in the right ventricle. Left Atrium: The left atrium is severely dilated. Right Atrium: The right atrium is severely dilated. There is an ICD lead noted in the right atrium. Mitral Valve: There is moderate thickening of the mitral valve leaflets. There is mild prolapse of the posterior leaflet of the mitral valve.Moderate to severe mitral regurgitation. No mitral stenosis is present. Aortic Valve: The aortic valve is tri-leaflet. There is mild thickening of the aortic cusps. Moderate aortic valve regurgitation is present. No aortic valve stenosis is present. Tricuspid Valve: The tricuspid valve appears normal. Mild to moderate tricuspid valve regurgitation. The pulmonary artery pressure is moderately increased. Pulmonic Valve: The pulmonic valve is normal in appearance and function. Moderate pulmonic valve regurgitation is noted. Aorta: Dilated aortic root measuring 3.9 cm. Normal size ascending aorta measuring 3.8 cm. IVC: The IVC is dilated. There is less than 50% respiratory excursion. Pericardium: No pericardial effusion. (No Signature Object) Patient: SHIV VELASQUEZ Study Date: 04/26/2017 Page 2 of 2 08:20 AM [id number]
--- NOTE | 2017-04-26 12:22 | PDCARPN ---
Cardiology Progress Note Chief Complaint: Syncope. VT Assessment/Plan: Assessment: 1. VT associated with syncope. Succesful ATP 2. NICM: LVEF 15-20%. Known hx of NICM on CHF therapy 3. severe MR 4.Moderate pulmonary hypertension 5. Chronic afib on coumadin Plan: -continue current dose of Lasix -Start Amiodarone 400 mg po bid x 12 days and then 200 mg daily -Continiue Coreg 12.5 mg bid -OK to transfer to [facility] -25 minutes spent with pt and coordinating care 04/26/17 12:19 04/26/17 12:25 Subjective: 76 year old gentleman admitted yesterday with new onset of syncope and found to have underlying VT on Medtronic BiV ICD interrogation. He has known hx of NICM with EF 25-30% (echo today with EF 15-20%) and chronic underlying afib onc chronic anticoagulation. He has not had any VT or ventricualar ectopic beats since 21:00 yesterday. He is currently paced at approx 75 bpm. He is feeling well. No complaints feels back to his baseline. Reviewed/Discussed With: family, multidisciplinary team Objective: Vital Signs (8 Hrs) Temp Pulse Resp BP Pulse Ox 04/26/17 12:00 83 15 123/80 H 99 04/26/17 10:00 37.1 C 87 14 133/78 H 95 04/26/17 08:00 37.0 C 90 16 123/97 H 99 04/26/17 06:00 80 15 124/69 H 93 Intake/Output (24 Hrs) 04/25/17 04/26/17 04/27/17 05:59 05:59 05:59 Intake Total 305 Output Total 1550 Balance -1245 Intake: IV Infused (ml) 305 Amiodarone HCl 540 mg In 305 D5w 300 ml @ 16.667 mls/ hr IV ONCE ONE Rx#: [id number] Output: Urine (ml) 1550 Urinal 1300 Other: Weight 71.668 kg Number of Voids Urinal 1 Result Diagrams: 04/26/17 05:15 04/26/17 05:15 Cardiac Labs: Cardiac Lab Results (72 Hrs) 04/26/17 05:15 Troponin I 0.038 H - Physical Exam Constitutional: WDWN, no apparent distress Ears, Nose, Mouth, Throat: moist mucous membranes Cardiovascular: no murmurs, no rubs, no gallops (Paced Rhythm ) Respiratory: other (course breath sounds at bases bilaterally) ICD10 Worksheet Patient Problems: Problems Problem Status Onset Atrial fibrillation Acute CHF (congestive heart failure) Acute Ventricular tachycardia Acute CHF - Congestive heart failure Active Chronic Disease Management/Transitional Care Program Active
--- NOTE | 2017-04-26 14:12 | HOSPPROG ---
Hospitalist Progress Note Assessment/Plan: * Ventricular tachycardia with syncope -amiodarone loaded - 400mg BID x 12 days, then 200mg PO daily -BiV ICD reprogrammed * Acute on chronic systolic CHF - EF 15% (non-ischemic), s/p BiV ICD -IV lasix * Afib -chronic warfarin - INR therapeutic * CKD - suspect baseline Subjective: No complaints, feels good Objective: Vital Signs Temp Pulse Resp BP Pulse Ox 37.1 C 83 15 123/80 H 99 04/26/17 10:00 04/26/17 12:00 04/26/17 12:00 04/26/17 12:00 04/26/17 12:00 Laboratory Results 04/26/17 05:15 04/26/17 05:15 04/25/17 04/26/17 04/27/17 05:59 05:59 05:59 Intake Total 305 Output Total 1550 Balance -1245 PT 27.3 SEC (12.0-15.0) H 04/25/17 17:55 INR 2.54 (0.83-1.16) H 04/25/17 17:55 ECHO - EF 15% CXR viewed, my personal interpretation is - no CHF - Physical Exam Constitutional: no apparent distress, appears nourished, not in pain Cardiovascular: regular rate and rhythym, no murmur, rub, or gallop Respiratory: no respiratory distress, no rales or rhonchi, clear to auscultation Gastrointestinal: normoactive bowel sounds, soft, non-tender abdomen, no palpable masses Skin: no rashes or abrasions, no fluctuance, no induration Neurologic: AAOx3, sensation intact bilaterally Psychiatric: interacting appropriately, not anxious, not encephalopathic, thought process linear ICD10 Worksheet Patient Problems: Problems Problem Status Onset Atrial fibrillation Acute CHF (congestive heart failure) Acute Ventricular tachycardia Acute CHF - Congestive heart failure Active Chronic Disease Management/Transitional Care Program Active
[2017-04-26] MEDS ORDERED: WARFARIN SODIUM 5 MG TAB PO SCH (16:00)
[2017-04-26] MEDS: TERAZOSIN HCL 5 MG CAP PO SCH (18:09)
[2017-04-26] MEDS: diphenhydrAMINE 25 MG CAP PO SCH (20:30)
[2017-04-26] MEDS: MELATONIN 3 MG TAB PO SCH (20:30)
[2017-04-26] MEDS: AMIODARONE HCL 200 MG TAB PO SCH (20:30)
[2017-04-27] MEDS: AMIODARONE HCL 200 MG TAB PO SCH (08:10)
[2017-04-27] MEDS: CARVEDILOL 6.25 MG TAB PO SCH (08:10)
[2017-04-27] MEDS: MULTIVITAMINS 1 EACH TAB PO SCH (08:10)
[2017-04-27] MEDS: LISINOPRIL 20 MG TAB PO SCH (08:10)
[2017-04-27] MEDS: FUROSEMIDE 40 MG/4 ML VIAL IVP SCH (08:11)
[2017-04-27 08:52] LABS: INR 2.3 (0.83-1.16); PROTIME(PATIENT) 25.3 SEC (12.0-15.0)
[2017-04-27 09:10] LABS: ANION GAP 14 mEq/L (8-16); CALCIUM 9.6 mg/dL (8.5-10.4); CARBON DIOXIDE 25 mEq/l (22-31); CHLORIDE 104 mEq/L (97-110); CREATININE 1.6 mg/dL (0.7-1.3); GLOMERULAR FILTRATION RATE 42; GLUCOSE 123 mg/dL (70-100); MAGNESIUM 1.7 mg/dL (1.6-2.3); POTASSIUM 4.4 mEq/L (3.5-5.2); SODIUM 143 mEq/L (134-144)
[2017-04-27] MEDS ORDERED: MAGNESIUM OXIDE 400 MG TAB PO SCH (11:00)
--- NOTE | 2017-04-27 11:37 | PDCARPN ---
Cardiology Progress Note Assessment/Plan: Assessment: 1. VT associated with syncope. Succesful ATP 2. NICM: LVEF 15-20%. Known hx of NICM on CHF therapy 3. severe MR 4.Moderate pulmonary hypertension 5. Chronic afib on coumadin Plan: -Stable for discharge home -Continue Amiodarone 400 mg po bid x 11 days and then 200 mg daily -Continue Coreg 12.5 mg bid -Return to all out patient medications -15 min spent with patient 04/27/17 11:39 Subjective: Mr. Sampson is feeling well this AM. No new complaints. No new episodes of near syncope or syncope. No complaints of sob or quintero. No chest pain. Telemetry demonstating primarily paced rhythm. Occasional PvC or triplets. NOte BNP is down from 12,100 to 8980. Reviewed/Discussed With: multidisciplinary team Objective: Vital Signs (8 Hrs) Temp Pulse Resp BP Pulse Ox 04/27/17 09:36 85 L 04/27/17 08:00 36.6 C 72 19 120/72 93 04/27/17 04:00 36.8 C 83 16 166/78 H 98 Intake/Output (24 Hrs) 04/26/17 04/27/17 04/28/17 05:59 05:59 05:59 Intake Total 305 770.1 Output Total 1550 650 Balance -1245 120.1 Intake: Oral (ml) 550 IV Intake (ml) 200.4 IV Infused (ml) 305 19.7 Amiodarone HCl 540 mg In 305 19.7 D5w 300 ml @ 16.667 mls/ hr IV ONCE ONE Rx#: [id number] Output: Urine (ml) 1550 650 Urinal 1300 650 Other: Weight 71.668 kg Intake Quantity Yes Sufficient Number of Voids Urinal 1 Result Diagrams: 04/26/17 05:15 04/27/17 08:33 Cardiac Labs: Cardiac Lab Results (72 Hrs) 04/26/17 05:15 Troponin I 0.038 H - Physical Exam Constitutional: WDWN Ears, Nose, Mouth, Throat: moist mucous membranes Cardiovascular: no murmurs, no rubs, no gallops, irregularly irregular, other ( trace bilateral ankle edema) Respiratory: clear to auscultate bilat Neurologic: AAOx3, CN II-XII grossly intact Psychiatric: cooperative, interactive, following commands ICD10 Worksheet Patient Problems: Problems Problem Status Onset CHF - Congestive heart failure Active Chronic Disease Management/Transitional Care Program Active Ventricular tachycardia Acute CHF (congestive heart failure) Acute Atrial fibrillation Acute
[2017-04-27 11:43] VITALS: BP 107/69; PULSE 78; RESP 13; TEMP 97.9; O2SAT 95
[2017-04-27] MEDS: OXYCODONE/APAP 5/325 TAB PO PRN (12:15)
--- NOTE | 2017-04-27 22:49 | GDS ---
[f rep st] DISCHARGE SUMMARY DISCHARGE DIAGNOSES: 1. Ventricular tachycardia with syncope. 2. Zfryk-mp-qqqjyzg systolic congestive heart failure. Ejection fraction 15%. 3. Nonischemic cardiomyopathy, status post biventricular implantable cardioverter/defibrillator. 4. Atrial fibrillation. 5. Chronic kidney disease. HISTORY: The patient is a 76-year-old male with a known nonischemic cardiomyopathy and ejection frac tion of 15%. He has a biventricular ICD in place. He presented with recurrent syncope and was found to be in ventricular tachycardia intermittently. He was loaded with amiodarone, and his biventricul ar ICD was reprogrammed. He has had no recurrence and is stable for discharge home. He was mildly d iuresed for slight volume overload on presentation. We anticipate his warfarin requirement to decrea se and plan for close outpatient following at the [facility] with initiation of amiodarone. DISCHARGE MEDICATIONS: Please see computerized record for full detailed list of medications. Amioda mick 400 mg p.o. b.i.d. for 11 days and then 200 mg p.o. daily thereafter. ADDITIONAL DISCHARGE INSTRUCTIONS: 1. Follow up closely at the [facility] for INR monitoring while initiating amiodarone. 2. A followup appointment scheduled with Dr. Osman Rodriguez, May 13, at 10:45 a.m. Greater than 30 minutes' time was spent arranging this discharge. Patient seen and examined by me on day of discharge. /[id number]/MODL
== END 2017-04-27 15:03 | disposition home or self-care (01) | DRG 308 ==
LOC: F2N 20:30 → F2W 04-26 17:11
PROVIDERS: ADMIT Hospitalist; ATTEND Hospitalist
DX: I47.2 Ventricular tachycardia (principal); I50.23 Acute on chronic systolic (congestive) heart failure; I48.2 Chronic atrial fibrillation; I12.9 Hypertensive chronic kidney disease with stage 1 through stage 4 chronic kidney disease, or unspecified chronic kidney disease; N18.9 Chronic kidney disease, unspecified; I42.9 Cardiomyopathy, unspecified; Z79.01 Long term (current) use of anticoagulants; Z95.810 Presence of automatic (implantable) cardiac defibrillator
CPT/HCPCS: 82607-90; 96365; J0282; J1940

== ENCOUNTER → 2018-05-04 | Outpatient (CLI) | payer OTHER | LOC: FIMAGING 09:49 | PROVIDERS: ATTEND Internal Medicine Cardiovascular Disease | DX: I48.91 Unspecified atrial fibrillation (principal); Z79.899 Other long term (current) drug therapy ==